=== PATIENT | female | born 1965 | race African-American/Black ===

== ENCOUNTER → 2021-06-01 | Outpatient (CLI) | payer BC, OTHER ==
[~2021-06-01] VITALS: Ht 172.7 cm; Wt 149.7 kg
[~2021-06-01] MED LIST: ASPIR 8181 MG PO; CENTRUM SILVER1 EAC4 PO; CLARITIN5 MG/5 ML PO; CLONIDINE HCL0.1 MG PO; COZAAR 25 MG TA25 M1 PO; ELIQUIS5 MG PO; FARXIGA5 MG PO; FLEXERIL PO; FUROSEMIDE 40 M40 MG PO; HYDROCHLOROTHIA25 M1 PO; MYCELEX VG; NITROSTAT0.4 M1 SUBLING; OMEPRAZOLE 20 M20 M1 PO; PREDNISONE 20 M20 MG PO; PROAIR HFA8.5 GM INH; PROTONIX40 M2 PO; SIMVASTATIN40 MG PO; TOPROL XL50 MG PO; VITAMIN D21250 MCG PO
[2021-06-01 09:36] VITALS: BP 161/100
--- NOTE | 2021-06-01 12:07 | NUR ---
Pain Clinic Assessment: 1. History of Osteoarthritis: Not Applicable History of Rheumatoid Arthritis: Not Applicable 2. Height: 5 ft. 8 in. 172.7 cm. Weight: 330.0 lb. oz. 149.688 kg. Patient's BMI: 50.2 3. Vital Signs: BP: 161/100 Pulse: 104 Resp: 22 Temp: 02 Sat: 98 ECG Mon: 4. Pain Intensity: 9 5. Fall Risk: Dizziness: N Needs help standing or walking: N Fallen in the last 3 months: N Fall risk comments: 6. Patient on Blood Thinner: None 7. History of Hypertension: Y 8. Opioid Therapy greater than 6 weeks: N Opiate Contract Signed: 9. Risk Assessment Tool Provided: 1-LOW 10. Functional Assessment Tool: 49/ 11. Recreational Drug Use: Never Drug Type: Tobacco Use: Never Smoker Tobacco Type: Amount or Packs/day: How Many Years: Alcohol Use: No Frequency: Quant:
== END ==
LOC: PAIN 06:58
PROVIDERS: ATTEND Anesthesiology Pain Medicine
DX: M54.16 Radiculopathy, lumbar region (principal); E66.01 Morbid (severe) obesity due to excess calories; I10 Essential (primary) hypertension; Z79.899 Other long term (current) drug therapy; Z79.891 Long term (current) use of opiate analgesic

== ENCOUNTER → 2021-07-02 | Outpatient (CLI) | payer BC, OTHER ==
[~2021-07-02] VITALS: Ht 152.4 cm; Wt 150.6 kg
[~2021-07-02] MED LIST changes: +CYMBALTA30 MG PO
[2021-07-02 14:37] VITALS: BP 161/109
--- NOTE | 2021-07-02 15:00 | NUR ---
Pain Clinic Assessment: 1. History of Osteoarthritis: Not Applicable History of Rheumatoid Arthritis: Not Applicable 2. Height: 5 ft. 8 in. 152.4 cm. Weight: 332.0 lb. oz. 150.595 kg. Patient's BMI: 64.8 3. Vital Signs: BP: 161/109 Pulse: 97 Resp: 20 Temp: 02 Sat: 100 ECG Mon: 4. Pain Intensity: 9 5. Fall Risk: Dizziness: N Needs help standing or walking: N Fallen in the last 3 months: N Fall risk comments: 6. Patient on Blood Thinner: None 7. History of Hypertension: Y 8. Opioid Therapy greater than 6 weeks: N Opiate Contract Signed: 9. Risk Assessment Tool Provided: 1-LOW 10. Functional Assessment Tool: 49/ 11. Recreational Drug Use: Never Drug Type: Tobacco Use: Never Smoker Tobacco Type: Amount or Packs/day: How Many Years: Alcohol Use: No Frequency: Quant:
== END | disposition home or self-care (01) ==
LOC: PAIN 10:55
PROVIDERS: ATTEND Anesthesiology Pain Medicine
DX: M54.16 Radiculopathy, lumbar region (principal); M48.061 Spinal stenosis, lumbar region without neurogenic claudication; G89.29 Other chronic pain; Z98.890 Other specified postprocedural states; Z79.899 Other long term (current) drug therapy

== ENCOUNTER → 2021-07-29 | Outpatient (CLI) | payer BC, OTHER | LOC: PUL 09:53 | PROVIDERS: ATTEND Internal Medicine | DX: Z01.812 Encounter for preprocedural laboratory examination (principal); R06.02 Shortness of breath; Z20.822 Contact with and (suspected) exposure to COVID-19 ==

== ENCOUNTER → 2021-08-10 | Outpatient (CLI) | payer BC, OTHER ==
[~2021-08-10] VITALS: Ht 172.7 cm; Wt 153.7 kg
[~2021-08-10] MED LIST changes: +STIOLTO RESPIMAT4 GM INH; +TRULICITY0.75 MG/0. SUBQ
[2021-08-10 09:13] VITALS: BP 157/110
--- NOTE | 2021-08-10 09:28 | NUR ---
Pain Clinic Assessment: 1. History of Osteoarthritis: Not Applicable History of Rheumatoid Arthritis: Not Applicable 2. Height: 5 ft. 8 in. 172.7 cm. Weight: 338.8 lb. oz. 153.679 kg. Patient's BMI: 51.5 3. Vital Signs: BP: 157/110 Pulse: 88 Resp: 22 Temp: 02 Sat: 99 ECG Mon: 4. Pain Intensity: 8 5. Fall Risk: Dizziness: N Needs help standing or walking: N Fallen in the last 3 months: N Fall risk comments: 6. Patient on Blood Thinner: None 7. History of Hypertension: Y 8. Opioid Therapy greater than 6 weeks: N Opiate Contract Signed: 9. Risk Assessment Tool Provided: 1-LOW 10. Functional Assessment Tool: 49/70 11. Recreational Drug Use: Never Drug Type: Tobacco Use: Never Smoker Tobacco Type: Amount or Packs/day: How Many Years: Alcohol Use: Yes Frequency: Special Occasions Quant: 1
== END | disposition home or self-care (01) ==
LOC: PAIN 08:15
PROVIDERS: ATTEND Anesthesiology Pain Medicine
DX: M47.26 Other spondylosis with radiculopathy, lumbar region (principal); M48.061 Spinal stenosis, lumbar region without neurogenic claudication; M54.59 Other low back pain; I10 Essential (primary) hypertension; G89.29 Other chronic pain; J44.9 Chronic obstructive pulmonary disease, unspecified; E66.01 Morbid (severe) obesity due to excess calories; Z98.890 Other specified postprocedural states; Z79.899 Other long term (current) drug therapy; Z68.43 Body mass index [BMI] 50.0-59.9, adult; Z79.82 Long term (current) use of aspirin

== ENCOUNTER → 2021-10-12 | Outpatient (CLI) | payer BC ==
[~2021-10-12] VITALS: Ht 172.7 cm; Wt 154.8 kg
[~2021-10-12] MED LIST changes: +GABAPENTIN 100100 MG PO
[2021-10-12 14:30] VITALS: BP 165/104
--- NOTE | 2021-10-12 14:49 | NUR ---
Pain Clinic Assessment: 1. History of Osteoarthritis: Not Applicable History of Rheumatoid Arthritis: Not Applicable 2. Height: 5 ft. 8 in. 172.7 cm. Weight: 341.2 lb. oz. 154.768 kg. Patient's BMI: 51.9 3. Vital Signs: BP: 165/104 Pulse: 116 Resp: 22 Temp: 02 Sat: 98 ECG Mon: 4. Pain Intensity: 10 5. Fall Risk: Dizziness: N Needs help standing or walking: N Fallen in the last 3 months: N Fall risk comments: 6. Patient on Blood Thinner: None 7. History of Hypertension: Y 8. Opioid Therapy greater than 6 weeks: N Opiate Contract Signed: 9. Risk Assessment Tool Provided: 1-LOW 10. Functional Assessment Tool: 49/70 11. Recreational Drug Use: Never Drug Type: Tobacco Use: Never Smoker Tobacco Type: Amount or Packs/day: How Many Years: Alcohol Use: Yes Frequency: Special Occasions Quant: 1
== END ==
LOC: PAIN 10-05 08:15
PROVIDERS: ATTEND Anesthesiology Pain Medicine
DX: G89.29 Other chronic pain (principal); M54.16 Radiculopathy, lumbar region; M54.50 Low back pain, unspecified; M48.062 Spinal stenosis, lumbar region with neurogenic claudication; E66.01 Morbid (severe) obesity due to excess calories; I10 Essential (primary) hypertension